=== PATIENT | male | born 1970 | race American Indian/Alaskan Native ===

== ENCOUNTER 2017-09-29 13:20 | Emergency (ER) | payer BC ==
[2017-09-29] MEDS ORDERED: MOTRIN PO ONE (22:33)
[2017-09-29] MEDS ORDERED: MOTRIN ONE (22:35)
--- NOTE | 2017-09-29 22:38 | Emergency Department Report ---
ED Back Pain/Injury HPI - General Chief Complaint: Extremity Injury, Lower Stated Complaint: BACK PAIN Time Seen by Provider: 09/29/17 21:44 Source: patient Limitations: No Limitations - History of Present Illness Initial Comments: This is a 46-year-old male nontoxic, well nourished in appearance, no acute signs of distress presents to the ED with c/o of chronic intermittent low back back pain. Patient describes pain as aching with level of 8/10. Patient stated pain radiates to right lower extermity. Patient denies any trauma to the region. Patient stated last episode was last year and he got a steroid shot in the ED and was discharged with muscle relaxant and NSAIDS. Patient stated had severe rounds of CTs and xrays with findings of disc bulging and sciatica. Patient denies any difficulty walking, bladder or bowel instability, dysuria, polyuria, hematuria, nausea, vomiting, chest pain, shortness of breath, abdominal pain, fever, chills, headache, stiff neck, numbness or tingling. Patient denies any allergies. Past medical history includes low back pain and sciatica. MD Complaint: back pain -: year(s) Similar Symptoms Previously: Yes Radiation: right leg Severity: mild Severity scale (0 -10): 8 Quality: aching Consistency: constant Improves With: supine, sitting upright Worsens With: movement, walking Associated Symptoms: denies other symptoms. denies: confusion, weakness, chest pain, numbness, difficulty walking, cough, difficulty urinating, diaphoresis, incontinence, fever/chills, constipation, headaches, abdominal pain, loss of appetite, malaise, nausea/vomiting, rash, seizure, shortness of breath, syncope - Related Data Previous Rx's Medication Instructions Recorded Last Taken Type Amoxicillin/K Clav Tab [Augmentin 1 tab PO BID #20 tablet 06/27/13 Unknown Rx 875MG TAB] Fluticasone Propionate [Flonase] 2 sprays NS DAILY #1 spray.susp 06/27/13 Unknown Rx Hydrocodone Bit/Acetaminophen 1 each PO Q6HR #20 tablet 06/27/13 Unknown Rx [Lortab 5-500 Tablet] Loratadine [Claritin] 10 mg PO DAILY #30 tablet 06/27/13 Unknown Rx Prednisone 40 mg PO QDAY #10 tablet 06/27/13 Unknown Rx Diazepam Tab [Valium] 5 mg PO QID PRN #10 tablet 07/15/13 Unknown Rx Ibuprofen [Motrin] 600 mg PO Q8H PRN #20 tablet 07/15/13 Unknown Rx oxyCODONE /ACETAMINOPHEN [Percocet 2 tab PO Q6HR PRN #10 tablet 07/15/13 Unknown Rx 5/325 mg] Cyclobenzaprine [Flexeril 10mg] 10 mg PO Q8H PRN #21 tablet 02/25/14 Unknown Rx traMADol [Ultram 50 MG tab] 50 mg PO Q6HR PRN #20 tablet 02/25/14 Unknown Rx HYDROcodone/APAP 5-325 [[place] 1 each PO Q6HR PRN #20 tablet 06/02/15 Unknown Rx 5/325] Ibuprofen [Motrin] 800 mg PO Q8HR PRN #90 tablet 06/02/15 Unknown Rx Cyclobenzaprine [Flexeril] 10 mg PO TID PRN #21 tablet 09/29/17 Unknown Rx Naproxen 500 mg PO Q8H PRN #30 tablet 09/29/17 Unknown Rx Allergies Allergy/AdvReac Type Severity Reaction Status Date / Time No Known Allergies Allergy Unverified 06/27/13 01:02 ED Review of Systems ROS: Stated complaint: BACK PAIN Other details as noted in HPI Constitutional: denies: chills, fever Eyes: denies: eye pain, eye discharge, vision change ENT: denies: ear pain, throat pain Respiratory: denies: cough, shortness of breath, wheezing Cardiovascular: denies: chest pain, palpitations Endocrine: no symptoms reported Gastrointestinal: denies: abdominal pain, nausea, diarrhea Genitourinary: denies: urgency, dysuria Musculoskeletal: back pain. denies: joint swelling, arthralgia Skin: denies: rash, lesions Neurological: denies: headache, weakness, paresthesias Psychiatric: denies: anxiety, depression Hematological/Lymphatic: denies: easy bleeding, easy bruising ED Past Medical Hx - Past Medical History Previous Medical History?: Yes Additional medical history: back pain. sciatica - Surgical History Past Surgical History?: Yes Additional Surgical History: appendectomy, L wrist sx - Social History Smoking Status: Never Smoker Substance Use Type: None - Medications Home Medications: Home Medications Medication Instructions Recorded Confirmed Last Taken Type Amoxicillin/K Clav Tab [Augmentin 1 tab PO BID #20 tablet 06/27/13 Unknown Rx 875MG TAB] Fluticasone Propionate [Flonase] 2 sprays NS DAILY #1 spray.susp 06/27/13 Unknown Rx Hydrocodone Bit/Acetaminophen 1 each PO Q6HR #20 tablet 06/27/13 Unknown Rx [Lortab 5-500 Tablet] Loratadine [Claritin] 10 mg PO DAILY #30 tablet 06/27/13 Unknown Rx Prednisone 40 mg PO QDAY #10 tablet 06/27/13 Unknown Rx Diazepam Tab [Valium] 5 mg PO QID PRN #10 tablet 07/15/13 Unknown Rx Ibuprofen [Motrin] 600 mg PO Q8H PRN #20 tablet 07/15/13 Unknown Rx oxyCODONE /ACETAMINOPHEN [Percocet 2 tab PO Q6HR PRN #10 tablet 07/15/13 Unknown Rx 5/325 mg] Cyclobenzaprine [Flexeril 10mg] 10 mg PO Q8H PRN #21 tablet 02/25/14 Unknown Rx traMADol [Ultram 50 MG tab] 50 mg PO Q6HR PRN #20 tablet 02/25/14 Unknown Rx HYDROcodone/APAP 5-325 [[place] 1 each PO Q6HR PRN #20 tablet 06/02/15 Unknown Rx 5/325] Ibuprofen [Motrin] 800 mg PO Q8HR PRN #90 tablet 06/02/15 Unknown Rx Cyclobenzaprine [Flexeril] 10 mg PO TID PRN #21 tablet 09/29/17 Unknown Rx Naproxen 500 mg PO Q8H PRN #30 tablet 09/29/17 Unknown Rx ED Physical Exam - General Limitations: No Limitations General appearance: alert, in no apparent distress - Head Head exam: Present: atraumatic, normocephalic, normal inspection - Eye Eye exam: Present: normal appearance, PERRL, EOMI. Absent: scleral icterus, conjunctival injection, nystagmus, periorbital swelling, periorbital tenderness Pupils: Present: normal accommodation - ENT ENT exam: Present: normal exam, normal orophraynx, mucous membranes moist, TM's normal bilaterally, normal external ear exam - Neck Neck exam: Present: normal inspection, full ROM. Absent: tenderness, meningismus, lymphadenopathy, thyromegaly - Respiratory Respiratory exam: Present: normal lung sounds bilaterally. Absent: respiratory distress, wheezes, rales, rhonchi, stridor, chest wall tenderness, accessory muscle use, decreased breath sounds, prolonged expiratory - Cardiovascular Cardiovascular Exam: Present: regular rate, normal rhythm, normal heart sounds. Absent: irregular rhythm, systolic murmur, diastolic murmur, rubs, gallop - GI/Abdominal GI/Abdominal exam: Present: soft, normal bowel sounds. Absent: distended, tenderness, guarding, rebound, rigid, diminished bowel sounds - Rectal Rectal exam: Present: deferred - Extremities Exam Extremities exam: Present: normal inspection, full ROM, normal capillary refill. Absent: tenderness, pedal edema, joint swelling, calf tenderness - Back Exam Back exam: Present: normal inspection, full ROM, paraspinal tenderness (right lumbar region). Absent: tenderness, CVA tenderness (R), CVA tenderness (L), muscle spasm, vertebral tenderness, rash noted - Expanded Back Exam Expanded Back exam: Present: normal rectal tone. Absent: saddle anesthesia Back exam: Negative Straight Leg Raising: Left, Right - Neurological Exam Neurological exam: Present: alert, oriented X3, CN II-XII intact, normal gait, reflexes normal - Psychiatric Psychiatric exam: Present: normal affect, normal mood - Skin Skin exam: Present: warm, dry, intact, normal color. Absent: rash ED Course Vital Signs 09/29/17 16:30 Pulse Rate 69 Respiratory 20 Rate Blood Pressure 133/97 O2 Sat by Pulse 100 Oximetry - Reevaluation(s) Reevaluation #1: 09/29/17 22:39 Patient is speaking in full sentences with no signs of distress noted. ED Medical Decision Making - Medical Decision Making this is a 46-year-old male that presents with chronic low back pain and sciatica. Patient is stable and was examined by me. Previous CT scan indicates diffuse disc bulging L4-S1 which may contact the nerve roots. Mild degenerative changes. Patient received Solu-Medrol IM in the ED as well as Motrin 800 mg by mouth. Patient states symptoms are improving and are subsided. Patient is discharged with Flexeril and Naproxen and was instructed not to operate any machinery while taking Flexeril due to drowsiness. Negative Patient was instructed and referred to Follow-up with a primary care doctor in 3-5 days or if symptoms worsen and continue return to emergency room as soon as possible. At time time of discharge, the patient does not seem toxic or ill in appearance. No acute signs of distress noted. Patient agrees to discharge treatment plan of care. No further questions noted by the patient. Critical care attestation.: If time is entered above; I have spent that time in minutes in the direct care of this critically ill patient, excluding procedure time. ED Disposition Clinical Impression: Chronic low back pain Qualifiers: Back pain laterality: right Sciatica presence: with sciatica Sciatica laterality: sciatica of right side Qualified Code(s): M54.41 - Lumbago with sciatica, right side; G89.29 - Other chronic pain; G89.29 - Other chronic pain Sciatica Qualifiers: Laterality: right Qualified Code(s): M54.31 - Sciatica, right side Disposition: TO HOME OR SELFCARE Is pt being admited?: No Does the pt Need Aspirin: No Condition: Stable Instructions: Chronic Back Pain (ED), Naproxen (By mouth), Cyclobenzaprine (By mouth) Additional Instructions: Follow-up with a primary care doctor in 3-5 days or if symptoms worsen and continue return to emergency room as soon as possible. Prescriptions: Cyclobenzaprine [Flexeril] 10 mg PO TID PRN #21 tablet PRN Reason: Muscle Spasm Naproxen 500 mg PO Q8H PRN #30 tablet PRN Reason: Pain Referrals: JOSIE REN JR, MD [Primary Care Provider] - 3-5 Days PRIMARY CARE, [Referring] - 3-[address] [facility] [Outside] - 3-5 Days [facility] [Outside] - 3-5 Days Forms: Work/School Release Form(ED)
[2017-09-29 23:27] VITALS: BP 128/82
== END 2017-09-29 23:26 | disposition home or self-care (01) ==
LOC: ED 13:20
DX: M54.41 Lumbago with sciatica, right side (principal); G89.29 Other chronic pain; Z90.49 Acquired absence of other specified parts of digestive tract
CPT/HCPCS: 96372; 99282; J2930